=== PATIENT | male | born 1970 | race Caucasian/White ===

== ENCOUNTER → 2016-06-16 | Outpatient (CLI) | payer BC ==
[2016-06-16 08:17] LABS: HEMATOCRIT 48.3 % (42.0-52.0); HEMOGLOBIN 16.5 g/dL (14.0-18.0); MEAN CORPUSCULAR HEMOGLOBIN 30.8 PG (27-31); MEAN CORPUSCULAR HGB CONC 34.2 g/dL (33-37); MEAN PLATELET VOLUME 9.6 FL (7.4-12.2); RED BLOOD COUNT 5.36 10^6/uL (4.70-6.10)
[2016-06-16 08:28] LABS: BLOOD UREA NITROGEN 17 mg/dL (7-22); CALCIUM 9.4 mg/dL (8.7-10.7); CHOL/HDL RATIO 4.56 RATIO (0-4.0); EST GLOMERULAR FILTRATION > 60 (>60 ml/min/1.73m(2)); HDL CHOLESTEROL 39 mg/dL (40-150); HEMOGLOBIN A1C 5.75 % (4.2-6.0); SERUM CHOLESTEROL 178 mg/dL (120-200); URIC ACID 9.4 mg/dl (3.8-8.5)
== END ==
LOC: LAB 08:05
PROVIDERS: ATTEND Family Medicine
DX: Z00.00 Encounter for general adult medical examination without abnormal findings (principal); I10 Essential (primary) hypertension; R73.9 Hyperglycemia, unspecified; M10.9 Gout, unspecified
CPT/HCPCS: 36415; 80053; 80061; 83036; 84550; 85027